=== PATIENT | female | born 1995 | race Caucasian/White ===

== ENCOUNTER → 2020-02-15 | Outpatient (CLI) | payer BC | LOC: RAD 11:48 | PROVIDERS: ATTEND Family Medicine | DX: S03.02XA Dislocation of jaw, left side, initial encounter (principal); X58.XXXA Exposure to other specified factors, initial encounter ==

== ENCOUNTER 2023-05-28 16:39 | Outpatient (CLI) | payer BC ==
[2023-05-28 17:35] VITALS: BP 110/72
--- NOTE | 2023-05-29 08:18 | Physician Query-Final Dx ---
CLIFF05/29/23 0818: Clinic Account Progress/Dx Physician Query: Please give diagnosis Please include # weeks gestation Date of Service May 28, 2023 at 16:39 ANGELO DARBY DO 05/29/23 1028: Clinic Account Progress/Dx DIAGNOSIS: Diagnosis 31 wk GA decreased movement; reactive nst CLIFF,OctMay 29, 2023 08:18 ANGLEO DARBY DO May 29, 2023 10:28
== END 2023-05-28 17:36 | disposition home or self-care (01) ==
LOC: LDRP 16:39 → WSo 16:39
PROVIDERS: ATTEND Family Medicine
DX: O36.8130 Decreased fetal movements, third trimester, not applicable or unspecified (principal); Z3A.31 31 weeks gestation of pregnancy
CPT/HCPCS: 59025

== ENCOUNTER 2023-07-22 19:00 | Inpatient (IN) | payer BC, OTHER ==
[~2023-07-22] VITALS: Ht 165 cm; Wt 103.7 kg
[2023-07-22] MEDS ORDERED: MINERAL OIL 30 ML UDC TOP PRN (19:30)
[2023-07-22] MEDS ORDERED: TERBUTALINE INJ 1 MG/ML (BRETHINE) AMP SC PRN (19:30)
[2023-07-22] MEDS ORDERED: LACTATED RINGERS 1,000 ML 1,000 ML IV SCH (19:30)
[2023-07-22] MEDS ORDERED: LACTATED RINGERS 1,000 ML 500 ML IV PRN (19:30)
[2023-07-22 19:52] LABS: BASOPHILS % (AUTO) 0 % (0-10); EOSINOPHILS % (AUTO) 1 % (0-10); HEMATOCRIT 36 % (35-52); HEMOGLOBIN 12.2 g/dL (11.5-16.0); LYMPHOCYTES % (AUTO) 24 % (12-44); MEAN CORPUSCULAR HEMOGLOBIN 32 pg (25-34); MEAN CORPUSCULAR HGB CONC 34 g/dL (32-36); MEAN CORPUSCULAR VOLUME 96 fL (80-99); MEAN PLATELET VOLUME 11.4 fL (9.0-12.2); MONOCYTES # (AUTO) 0.9 10^3/uL (0.0-1.0); MONOCYTES % (AUTO) 11 % (0-12); NEUTROPHILS # (AUTO) 5.4 10^3/uL (1.8-7.8); NEUTROPHILS % (AUTO) 64 % (42-75); PLATELET COUNT 193 10^3/uL (130-400); WHITE BLOOD COUNT 8.4 10^3/uL (4.3-11.0)
[2023-07-22] MEDS: D5 LR 1,000 ML IV SOLN 1,000 ML IV SCH (19:55)
[2023-07-22 20:09] VITALS: BP 126/73
[2023-07-22] MEDS ORDERED: CALCIUM CARBONATE 500 MG CHEW TABLET PO PRN (21:15)
--- NOTE | 2023-07-22 21:18 | History & Physical-OB ---
OB - Chief Complaint & HPI Date/Time Date of Admission: Date of Admission: Jul 22, 2023 at 19:00 Date seen by a Provider: Jul 22, 2023 Time Seen by a Provider: 19:25 Chief Complaint/History OB-Reason for Admission/Chief: Induction of Labor Hx : 2 Hx Para: 0 Expected Date of Delivery: Jul 26, 2023 Gestational Age in Weeks: 39 Gestational Age in Days: 3 History of Labs A+, antibody neg, RNI. HIV/hepB/hepC/RPR NR. GC/chlamydia neg. 1 hour glucola neg. GBS neg. Other at 39w3d, has had increased blood pressure at last visit of 130/88, as well as requesting induction of labor. Allergies and Home Medications Allergies Coded Allergies: Penicillins (Verified Allergy, Intermediate, Hives, 07/22/23) Patient Home Medication List Home Medication List Reviewed: Yes Diphenhydramine HCl (Benadryl) 25 Mg Capsule, 25 MG PO HS PRN for INSOMNIA, (Reported) Entered as Reported by: SESAR NAIDU on 07/22/232119 Last Action: New Order Escitalopram Oxalate (Escitalopram Oxalate) 20 Mg Tablet, 20 MG PO DAILY, (Reported) Entered as Reported by: SESAR NAIDU on 07/22/232119 Last Action: New Order Pnv95/Ferrous Fumarate/FA ( Vitamin Tablet) 28 Mg Iron-800 Mcg Tablet, 1 EACH PO DAILY, (Reported) Entered as Reported by: SESAR NAIDU on 07/22/232119 Last Action: New Order OB - History Hx of Present Care: Yes Ultrasounds: Normal mid trimester US Obstetrical Complications: None Medical Complications: Psychiatric Information Induced Hypertension: No Maternal Gestational Diabetes: No Hemorrhage: No Obstetrical History Hx : 2 Hx Para: 0 Hx # Term Pregnancies: 0 Hx # Pregnancies: 0 Number of Living Children: 0 Hx Termination: No Hx Total # of Abortions (Spona: 1 Hx Multiple Gestation: No Hx Ectopic : No Hx Stillbirth: No Hx Complication: No Hx Induced Hypertens: No Hx Maternal Gestational Diabet: No Hx Hemorrhage: No Risk Variables Obstetrical Risk Variables: Not POA Anemia, Not POA Asthma, Not POA Autoimmune Disease, Not POA Bariatric Surgery, Not POA Bleeding Disorder, Not POA BMI >= 40, Not POA Cardiac Disease, Not POA Economic Housing Instabil, Not POA Gastrointestinal Disease, Not POA Gestational Diabetes, Not POA HIV, Not POA Hypertension, Not POA Enterprise Systems Engineer Anticoagulant U; POA Mental Health Disorder; Not POA Multiple , Not POA Neuromuscular Disease, Not POA Obstetrical VTE, Not POA Other Preeclampsia, Not POA Placenta Previa, Not POA Placental Abruption, Not POA Placenta Accreta Spectrum, Not POA Preexisting Diabetes, Not POA , Not POA Previous , Not POA Pulmonary Hypertension, Not POA Renal Disease, Not POA Severe Preeclampsia, Not POA Substance Abuse, Not POA Thyrotoxicosis Patient Past Medical History PMHx: Depression Surghx: Appendectomy Social History/Family History Alcohol Use: Denies Use Recreational Drug Use: No Smoking Cessation: Never smoker Immunizations Influenza Vaccine Up-to-Date: No; Not Current COVID19 Vaccine Developer Advocate: Moderna Tetanus Booster (TDap): Less than 5yrs (05/18/2023) Rubella: not immune RPR/VDRL: Negative GBS Status: Negative HBsAG: Negative OB - Admission Exam Physical Exam Vitals: Vital Signs 07/22/23 20:09 Temp 36.3 Pulse 87 Resp 18 Pulse Ox 98 O2 Delivery Room Air HEENT: NCAT Abdomen: Gravid Cervical Dilatation: 1cm Effacement: 0% Station: -3 Membranes: Intact Heart Rate: 130's Decelerations: No Decelerations Short Term Variability: Present Half-Way Variability: Average (6-25) Contractions on Admission: None Reyes Scoring Tool (Modified) Dilation (cm): 1-2cm (1) Effacement (%): 0-30% (0) Descent/Station: -3 (0) Cervix Consistency: Soft (2) Cervix Position: Posterior (0) Subtract 1 point for: Nulliparity (-1) Reyes Score: 2 Labs Laboratory Tests Test 07/22/23 19:35 Range/Units White Blood Count 8.4 4.3-11.0 10^3/uL Red Blood Count 3.77 L 3.80-5.11 10^6/uL Hemoglobin 12.2 11.5-16.0 g/dL Hematocrit 36 35-52 % Mean Corpuscular Volume 96 80-99 fL Mean Corpuscular Hemoglobin 32 25-34 pg Mean Corpuscular Hemoglobin Concent 34 32-36 g/dL Red Cell Distribution Width 13.5 10.0-14.5 % Platelet Count 193 130-400 10^3/uL Mean Platelet Volume 11.4 9.0-12.2 fL Immature Granulocyte % (Auto) 1 % Neutrophils (%) (Auto) 64 42-75 % Lymphocytes (%) (Auto) 24 12-44 % Monocytes (%) (Auto) 11 0-12 % Eosinophils (%) (Auto) 1 0-10 % Basophils (%) (Auto) 0 0-10 % Neutrophils # (Auto) 5.4 1.8-7.8 10^3/uL Lymphocytes # (Auto) 2.0 1.0-4.0 10^3/uL Monocytes # (Auto) 0.9 0.0-1.0 10^3/uL Eosinophils # (Auto) 0.0 0.0-0.3 10^3/uL Basophils # (Auto) 0.0 0.0-0.1 10^3/uL Immature Granulocyte # (Auto) 0.0 0.0-0.1 10^3/uL Syphilis Total Antibody Negative Negative OB - Assessment/Plan/Diagnosis Assessment Admission Dx Term at 39 weeks 4 days Rubella non-immune GBS negative Elevated blood pressure in third trimester Admission Status: Inpatient Order (span 2 midnights) Reason for Inpatient Admission: Labor, delivery and course Plan Problems: (1) Encounter for induction of labor Assessment & Plan: Risks and benefits of induction of labor discussed, including risk of with unfavorable cervix, risk of uterine hyper stimulation with medication use and possible prolonged labor course. She requested to proceed with induction, discussed cervical ripening with mechanical versus pharmacologic methods and she preferred to proceed with cytotec. (2) Elevated blood pressure complicating in third trimester, antepartum Assessment & Plan: Elevated blood pressure without hypertension, monitor closely. (3) Rubella non-immune status, antepartum Assessment & Plan: MMR SESAR NAIDU MD Jul 22, 2023 21:18
[2023-07-22] MEDS ORDERED: PNV91TAB6 PO (21:20)
[2023-07-22] MEDS ORDERED: DIPH25CA79 PO (21:20)
[2023-07-22] MEDS ORDERED: ESCI20TA39 PO (21:20)
[2023-07-22] MEDS ORDERED: CALCIUM CARBONATE 500 MG CHEW TABLET ONE (21:53)
[2023-07-22] MEDS ORDERED: fentaNYL INJECTION 100 MCG/2 ML VIAL IVP PRN (23:30)
[2023-07-23] VITALS (40 sets, daily range): BP systolic 92–135; BP diastolic 53–89
[2023-07-23] MEDS ORDERED: ACETAMINOPHEN 500 MG TABLET PO ONE (02:30)
[2023-07-23] MEDS ORDERED: ACETAMINOPHEN 500 MG TABLET ONE (02:31)
[2023-07-23] MEDS: D5 LR 1,000 ML IV SOLN 1,000 ML IV SCH ×3 (02:56→17:34)
[2023-07-23] MEDS ORDERED: CATHETER FLUSH 10 ML SYR IV SCH (06:00)
--- NOTE | 2023-07-23 10:02 | Labor Progress Note ---
Labor Progress Note Labor Progress Note Date Seen by Provider: Jul 23, 2023 Time Seen by Provider: 08:30 Subjective: Pt denies complaints. Objective: Cervical exam: /-3 Consistency: soft Position: anterior Presentation: vertex heart tones: 130 beats per minute, moderate variability, reactive Tocometer: 5 ctx/10 minutes Assessment/Plan: Debbie Magdaleno is a (27 /Para 2 / 0,Gestational Age (wks)39 here for induction of labor. At initial check around 0750, her cervix was 1.5/40/-3, she had received one dose of cytotec last night and no further due to persistent fr equent contractions. Discussed with her options of catheter ripening, continued expectant management, starting oxytocin or discontinuing induction at this time and considering rescheduling another date or waiting for spontaneous labor. Strongly recommended considering waiting given minimal change so far, after discussion, she wanted to proceed with mechanical ripening and if that was not effective would consider whether she wanted to stop current induction attempt. However, when I checked her cervix at [address] rip[address] catheter, she was /-3. Proceeded with double bulb catheter placement at this time. CEFM/TOCO Anesthesia: None, okay for epidural if/when desired Anticipate vaginal delivery. Vitals - Labs Vital Signs - I&O Vital Signs Date Time Temp Pulse Resp B/P (MAP) Pulse Ox O2 Delivery O2 Flow Rate FiO2 07/23/23 08:36 65 20 128/88 (101) Room Air 07/23/23 08:00 69 20 135/80 (98) Room Air 07/23/23 05:09 78 16 116/75 (89) Room Air 07/23/23 00:21 75 16 116/72 (87) Room Air 07/22/23 20:09 36.3 87 18 98 Room Air I & O 07/23/23 06:59 Intake Total 2000 ml Balance 2000 ml Labs Laboratory Tests 07/22/23 19:35: White Blood Count 8.4, Red Blood Count 3.77L, Hemoglobin 12.2, Hematocrit 36, Mean Corpuscular Volume 96, Mean Corpuscular Hemoglobin 32, Mean Corpuscular Hemoglobin Concent 34, Red Cell Distribution Width 13.5, Platelet Count 193, Mean Platelet Volume 11.4, Immature Granulocyte % (Auto) 1, Neutrophils (%) (Auto) 64, Lymphocytes (%) (Auto) 24, Monocytes (%) (Auto) 11, Eosinophils (%) (Auto) 1, Basophils (%) (Auto) 0, Neutrophils # (Auto) 5.4, Lymphocytes # (Auto) 2.0, Monocytes # (Auto) 0.9, Eosinophils # (Auto) 0.0, Basophils # (Auto) 0.0, Immature Granulocyte # (Auto) 0.0, Syphilis Total Antibody Negative SESAR NAIDU MD Jul 23, 2023 10:02
--- NOTE | 2023-07-23 16:26 | Labor Progress Note ---
Labor Progress Note Labor Progress Note Date Seen by Provider: Jul 23, 2023 Time Seen by Provider: 16:00 Subjective: Pt denies complaints. Contractions have stopped. Cook catheter has not been extruded yet. Discussed options including simply leaving catheter for longer, removing catheter and starting pitocin, removing catheter and rupturing and starting pitocin and removing catheter and ending current attempt at induction if cervix not significantly changing. She would like to have have catheter removed and if significant cervical change to have AROM and pitocin, if not, then to trial pitocin. Objective: Cervical exam: Vaginal bulb emptied, uterine bulb removed 40 cc and catheter removed before further deflation as it slid out with minimal traction. Consistency: 5/40/-3 Position: anterior Presentation: vertex heart tones: 125 beats per minute, moderate variability, reactive Tocometer: 0 ctx/10 minutes Assessment/Plan: Debbie Magdaleno is a 27 /Para 2 / 0,Gestational Age 39w5d here for induction of labor. She is still requesting to continue induction at this time, will hold off on AROM due to high head and to preserve ability to abandon current induction attempt. Start pitocin. CEFM/TOCO Start pitocin Anesthesia: None Anticipate vaginal delivery. Vitals - Labs Vital Signs - I&O Vital Signs Date Time Temp Pulse Resp B/P (MAP) Pulse Ox O2 Delivery O2 Flow Rate FiO2 07/23/23 12:00 72 18 120/72 (88) 07/23/23 08:36 65 20 128/88 (101) Room Air 07/23/23 08:00 69 20 135/80 (98) Room Air 07/23/23 05:09 78 16 116/75 (89) Room Air 07/23/23 00:21 75 16 116/72 (87) Room Air 07/22/23 20:09 36.3 87 18 98 Room Air I & O 07/23/23 07:00 Intake Total 2000 ml Balance 2000 ml Labs Laboratory Tests 07/22/23 19:35: White Blood Count 8.4, Red Blood Count 3.77L, Hemoglobin 12.2, Hematocrit 36, Mean Corpuscular Volume 96, Mean Corpuscular Hemoglobin 32, Mean Corpuscular Hemoglobin Concent 34, Red Cell Distribution Width 13.5, Platelet Count 193, Mean Platelet Volume 11.4, Immature Granulocyte % (Auto) 1, Neutrophils (%) (Auto) 64, Lymphocytes (%) (Auto) 24, Monocytes (%) (Auto) 11, Eosinophils (%) (Auto) 1, Basophils (%) (Auto) 0, Neutrophils # (Auto) 5.4, Lymphocytes # (Auto) 2.0, Monocytes # (Auto) 0.9, Eosinophils # (Auto) 0.0, Basophils # (Auto) 0.0, Immature Granulocyte # (Auto) 0.0, Syphilis Total Antibody Negative SESAR NAIDU MD Jul 23, 2023 16:26
[2023-07-23] MEDS: OXYTOCIN DRIP PRE-MIX 500 ML IV SCH (17:37)
[2023-07-23] MEDS ORDERED: fentaNYL 2 mcg/ml BUPIVA 0.125 100 ML ONE (21:35)
[2023-07-23] MEDS ORDERED: fentaNYL INJECTION 100 MCG/2 ML VIAL ONE (21:59)
[2023-07-23] MEDS ORDERED: BUPIVACAINE 0.25% 10 ML VIAL ONE (21:59)
[2023-07-23] MEDS: fentaNYL 2 mcg/ml BUPIVA 0.125 100 ML EPI SCH (22:44)
[2023-07-23] MEDS ORDERED: LACTATED RINGERS 1,000 ML 1,000 ML IV SCH (22:45)
[2023-07-23] MEDS ORDERED: diphenhydrAMINE INJ 50 MG/ML VIAL IV PRN (22:45)
[2023-07-23] MEDS ORDERED: ONDANSETRON INJECTION 4 MG/2 ML (SDV) IV PRN (22:45)
[2023-07-23] MEDS ORDERED: NALOXONE 0.4 MG/ML 1 ML VIAL IV PRN (22:45)
[2023-07-24] VITALS (72 sets, daily range): BP systolic 84–134; BP diastolic 50–84
[2023-07-24] MEDS: D5 LR 1,000 ML IV SOLN 1,000 ML IV SCH ×2 (01:29→10:54)
[2023-07-24] MEDS: fentaNYL 2 mcg/ml BUPIVA 0.125 100 ML EPI SCH ×2 (05:37→13:09)
--- NOTE | 2023-07-24 08:26 | Labor Progress Note ---
Labor Progress Note Labor Progress Note Date Seen by Provider: Jul 24, 2023 Time Seen by Provider: 08:23 Subjective: Pt denies complaints. Objective: Cervical exam: /0 Consistency: soft Position: anterior Presentation: vertex heart tones: 140 beats per minute, moderate variability, reactive Tocometer: 3 ctx/10 minutes Assessment/Plan: Debbie Magdaleno is a 27 /Para 2 / 0,Gestational Age 39w6d here for induction of labor. Yesterday evening around 8 pm, she was still 5/0/-3 and we discussed again the possibility of terminating induction attepmt and trying again next week. She wanted to try pitocin and position changes to see if she would make progress through the night, and then she had spontaneous rupture of membranes around 1030 pm. This morning at 6 am she was 7/90/-1 per nursing exam. Given slow progress and change, discussed IUPC placement which she was agreeable to and was done with this exam. Updated Dr. Beyer Pipelines Supervisor orthodontic laboratory technician as well as Dr. Larios who will be taking over care for her until noon today, followed by Dr. Lees at noon. CEFM/IUPC Continue pitocin Anesthesia: epidural Anticipate vaginal delivery, but discussed with patient the criteria for failure to progress and will monitor IUPC and well being closely. Vitals - Labs Vital Signs - I&O Vital Signs Date Time Temp Pulse Resp B/P (MAP) Pulse Ox O2 Delivery O2 Flow Rate FiO2 07/24/23 06:56 87 16 113/60 (77) 97 Room Air 07/24/23 06:41 81 16 117/58 (77) 97 Room Air 07/24/23 06:26 84 16 110/59 (76) 97 Room Air 07/24/23 06:12 81 16 109/62 (78) 97 Room Air 07/24/23 05:57 84 16 100/62 (75) 96 Room Air 07/24/23 05:42 36.4 85 16 109/68 (82) 97 Room Air 07/24/23 05:26 84 16 108/63 (78) 97 Room Air 07/24/23 05:12 85 16 111/65 (80) 97 Room Air 07/24/23 04:58 85 16 108/63 (78) 96 Room Air 07/24/23 04:41 86 16 111/57 (75) 96 Room Air 07/24/23 04:26 83 16 107/70 (82) 97 Room Air 07/24/23 04:11 86 16 106/65 (79) 98 Room Air 07/24/23 03:56 94 16 103/58 (73) 97 Room Air 07/24/23 03:41 82 16 99/56 (70) 97 Room Air 07/24/23 03:26 75 16 98/56 (70) 97 Room Air 07/24/23 03:11 78 16 96/56 (69) 98 Room Air 07/24/23 02:56 75 16 96/59 (71) 98 Room Air 07/24/23 02:41 36.4 87 16 91/57 (68) 95 Room Air 07/24/23 02:25 71 16 93/53 (66) 96 Room Air 07/24/23 02:11 71 16 92/50 (64) 97 Room Air 07/24/23 02:03 68 16 89/54 (66) 98 Room Air 07/24/23 01:56 77 16 89/53 (65) 97 Room Air 07/24/23 01:41 80 16 103/55 (71) 97 Room Air 07/24/23 01:26 76 16 99/55 (70) 97 Room Air 07/24/23 01:20 85 16 101/59 (73) 98 Room Air 07/24/23 01:10 79 16 84/54 (64) 96 Room Air 07/24/23 00:55 75 16 92/55 (67) 97 Room Air 07/24/23 00:40 81 16 95/57 (70) 99 Room Air 07/24/23 00:27 81 18 92/52 (65) 98 Room Air 07/24/23 00:12 87 18 113/73 (86) 99 Room Air 07/23/23 23:56 78 18 118/64 (82) 99 Room Air 07/23/23 23:41 80 18 108/70 (83) 99 Room Air 07/23/23 23:26 78 18 109/60 (76) 100 Room Air 07/23/23 23:11 75 18 105/66 (79) 100 Room Air 07/23/23 22:55 36.9 77 18 111/60 (77) 100 Room Air 07/23/23 22:50 71 18 102/56 (71) 99 Room Air 07/23/23 22:47 85 18 107/64 (78) 99 Room Air 07/23/23 22:43 76 18 102/64 (77) 99 Room Air 07/23/23 22:40 88 18 108/62 (77) 100 Room Air 07/23/23 22:37 85 18 106/59 (75) 100 Room Air 07/23/23 22:34 90 18 105/67 (80) 99 Room Air 07/23/23 22:32 84 18 104/67 (79) 100 Room Air 07/23/23 22:31 86 18 92/53 (66) 100 Room Air 07/23/23 22:29 81 18 95/54 (68) 100 Room Air 07/23/23 22:26 93 18 108/72 (84) 100 Room Air 07/23/23 22:23 81 18 110/68 (82) 100 Room Air 07/23/23 22:17 81 18 118/68 (85) 100 Room Air 07/23/23 22:14 74 18 119/67 (84) 100 Room Air 07/23/23 22:11 81 18 120/72 (88) 100 Room Air 07/23/23 21:58 81 18 132/89 (103) 100 Room Air 07/23/23 21:41 79 18 124/74 (91) 100 Room Air 07/23/23 21:28 73 18 126/82 (97) 100 Room Air 07/23/23 21:11 65 18 114/69 (84) 99 Room Air 07/23/23 20:56 69 18 129/64 (85) 100 Room Air 07/23/23 20:42 72 18 113/79 (90) 100 Room Air 07/23/23 20:26 86 18 123/72 (89) 99 Room Air 07/23/23 20:11 36.8 79 18 117/71 (86) 100 Room Air 07/23/23 19:56 80 18 113/67 (82) 100 Room Air 07/23/23 19:40 83 121/80 (94) Room Air 07/23/23 19:26 82 115/77 (90) Room Air 07/23/23 19:13 77 114/70 (85) Room Air 07/23/23 19:00 81 110/65 (80) Room Air 07/23/23 18:45 80 110/72 (85) Room Air 07/23/23 18:30 78 110/67 (81) Room Air 07/23/23 18:15 77 119/61 (80) Room Air 07/23/23 12:00 72 18 120/72 (88) 07/23/23 08:36 65 20 128/88 (101) Room Air I & O 07/24/23 07:00 Intake Total 2285 ml Output Total 650 ml Balance 1635 ml SESAR NAIDU MD Jul 24, 2023 08:26
[2023-07-24] MEDS ORDERED: LIDOCAINE 2% w/EPI 1:200,000 20 ML VIAL ONE (14:21)
[2023-07-24] MEDS: OXYTOCIN DRIP PRE-MIX 500 ML IV SCH (14:51)
--- NOTE | 2023-07-24 15:44 | OB Labor & Delivery Record ---
LYNSEY HERNANDEZ MD,RESIDENT 07/24/23 1544: Vag Delivery Note Vag Delivery Note Date of Delivery: 07/24/23 Preoperative Diagnosis: Debbie yanez a (27 /Para 2 / 0,Gestational Age (wks)39with [ ] Postoperative Diagnosis: Same Attending Surgeon/Physician: Janee Brooks MD Resident Physician: Lynsey Hernandez MD Anesthesia: Epidural Delivery Type: Spontaneous vaginal Findings: Viable female , apgars 7,9, weight 8lbs Lacerations: 2nd degree perineal, periurethral and lateral labia abrasion Intact placenta with 3 vessel cord. No nuchal cord, body cord or shoulder dystocia Estimated Blood Loss: 300 ml Complications: None Condition: Stable Description of Procedure: The patient is a 27 year old female who presented for IOL. She was admitted and informed consent was obtained. Her labor course was uncomplicated. She progressed to complete dilatation and began to push. She was then set up for delivery. The 's head was delivered atraumatically in the AMARI position. The shoulders and remainder of the 's body were then delivered without difficulty. Upon delivery, the infant was vigorous and placed on maternal chest and the mouth and nares were bulb suctioned. After a delay co rd was doubly clamped and cut and the remained on maternal chest. An intact placenta with 3-vessel cord delivered via Jaylyn and there was found to be minimal bleeding.~ Vigorous fundal massage was performed and the fundus was found to be firm. IV oxytocin was given. Pt persisted to bleed, repeat fundal assessment showed a mildly boggy uterus, Methergine was given. Uterus was firm on repeat fundal assessment. Examination of the vagina and perineum revealed 2nd and 1st degree lacerations repaired in the usual fashion with 3-0 vicryl rapide suture. Following the repair, sponge, instrument and needle counts were correct. Mom and baby were both in stable condition in the labor suite. Vitals - Labs Vital Signs - I&O Vital Signs Date Time Temp Pulse Resp B/P (MAP) Pulse Ox O2 Delivery O2 Flow Rate FiO2 07/24/23 10:12 86 18 107/69 (82) 97 Room Air 07/24/23 09:57 86 18 104/67 (79) 97 Room Air 07/24/23 09:42 89 18 100/52 (68) 97 Room Air 07/24/23 09:27 85 18 95/52 (66) 97 Room Air 07/24/23 09:12 83 18 98/53 (68) 96 Room Air 07/24/23 08:57 82 18 92/53 (66) 96 Room Air 07/24/23 08:42 90 18 90/56 (67) 96 Room Air 07/24/23 08:27 37.3 121 18 133/67 (89) 100 Room Air 07/24/23 08:12 84 16 110/71 (84) 100 Room Air 07/24/23 07:57 80 16 111/72 (85) 100 Room Air 07/24/23 07:42 86 16 111/74 (86) 97 Room Air 07/24/23 07:28 89 16 111/66 (81) 97 Room Air 07/24/23 07:12 91 16 113/64 (80) 97 Room Air 07/24/23 06:56 87 16 113/60 (77) 97 Room Air 07/24/23 06:41 81 16 117/58 (77) 97 Room Air 07/24/23 06:26 84 16 110/59 (76) 97 Room Air 07/24/23 06:12 81 16 109/62 (78) 97 Room Air 07/24/23 05:57 84 16 100/62 (75) 96 Room Air 07/24/23 05:42 36.4 85 16 109/68 (82) 97 Room Air 07/24/23 05:26 84 16 108/63 (78) 97 Room Air 07/24/23 05:12 85 16 111/65 (80) 97 Room Air 07/24/23 04:58 85 16 108/63 (78) 96 Room Air 07/24/23 04:41 86 16 111/57 (75) 96 Room Air 07/24/23 04:26 83 16 107/70 (82) 97 Room Air 07/24/23 04:11 86 16 106/65 (79) 98 Room Air 07/24/23 03:56 94 16 103/58 (73) 97 Room Air 07/24/23 03:41 82 16 99/56 (70) 97 Room Air 07/24/23 03:26 75 16 98/56 (70) 97 Room Air 07/24/23 03:11 78 16 96/56 (69) 98 Room Air 07/24/23 02:56 75 16 96/59 (71) 98 Room Air 07/24/23 02:41 36.4 87 16 91/57 (68) 95 Room Air 07/24/23 02:25 71 16 93/53 (66) 96 Room Air 07/24/23 02:11 71 16 92/50 (64) 97 Room Air 07/24/23 02:03 68 16 89/54 (66) 98 Room Air 07/24/23 01:56 77 16 89/53 (65) 97 Room Air 07/24/23 01:41 80 16 103/55 (71) 97 Room Air 07/24/23 01:26 76 16 99/55 (70) 97 Room Air 07/24/23 01:20 85 16 101/59 (73) 98 Room Air 07/24/23 01:10 79 16 84/54 (64) 96 Room Air 07/24/23 00:55 75 16 92/55 (67) 97 Room Air 07/24/23 00:40 81 16 95/57 (70) 99 Room Air 07/24/23 00:27 81 18 92/52 (65) 98 Room Air 07/24/23 00:12 87 18 113/73 (86) 99 Room Air 07/23/23 23:56 78 18 118/64 (82) 99 Room Air 07/23/23 23:41 80 18 108/70 (83) 99 Room Air 07/23/23 23:26 78 18 109/60 (76) 100 Room Air 07/23/23 23:11 75 18 105/66 (79) 100 Room Air 07/23/23 22:55 36.9 77 18 111/60 (77) 100 Room Air 07/23/23 22:50 71 18 102/56 (71) 99 Room Air 07/23/23 22:47 85 18 107/64 (78) 99 Room Air 07/23/23 22:43 76 18 102/64 (77) 99 Room Air 07/23/23 22:40 88 18 108/62 (77) 100 Room Air 07/23/23 22:37 85 18 106/59 (75) 100 Room Air 07/23/23 22:34 90 18 105/67 (80) 99 Room Air 07/23/23 22:32 84 18 104/67 (79) 100 Room Air 07/23/23 22:31 86 18 92/53 (66) 100 Room Air 07/23/23 22:29 81 18 95/54 (68) 100 Room Air 07/23/23 22:26 93 18 108/72 (84) 100 Room Air 07/23/23 22:23 81 18 110/68 (82) 100 Room Air 07/23/23 22:17 81 18 118/68 (85) 100 Room Air 07/23/23 22:14 74 18 119/67 (84) 100 Room Air 07/23/23 22:11 81 18 120/72 (88) 100 Room Air 07/23/23 21:58 81 18 132/89 (103) 100 Room Air 07/23/23 21:41 79 18 124/74 (91) 100 Room Air 07/23/23 21:28 73 18 126/82 (97) 100 Room Air 07/23/23 21:11 65 18 114/69 (84) 99 Room Air 07/23/23 20:56 69 18 129/64 (85) 100 Room Air 07/23/23 20:42 72 18 113/79 (90) 100 Room Air 07/23/23 20:26 86 18 123/72 (89) 99 Room Air 07/23/23 20:11 36.8 79 18 117/71 (86) 100 Room Air 07/23/23 19:56 80 18 113/67 (82) 100 Room Air 07/23/23 19:40 83 121/80 (94) Room Air 07/23/23 19:26 82 115/77 (90) Room Air 07/23/23 19:13 77 114/70 (85) Room Air 07/23/23 19:00 81 110/65 (80) Room Air 07/23/23 18:45 80 110/72 (85) Room Air 07/23/23 18:30 78 110/67 (81) Room Air 07/23/23 18:15 77 119/61 (80) Room Air I & O 07/24/23 07:00 Intake Total 2285 ml Output Total 650 ml Balance 1635 ml JANEE BROOKS MD 07/25/23 1236: Vag Delivery Note Vag Delivery Note I was present for the entire labor procedure and laceration repair performed by the resident and agree with the documentation. LYNSEY HERNANDEZ MD,RESIDENT Jul 24, 2023 15:44 JANEE BROOKS MD Jul 25, 2023 12:36
[2023-07-24] MEDS ORDERED: MEASLES, MUMPS, RUBELLA VACCINE (MMR) SQ ONE (16:00)
[2023-07-24] MEDS ORDERED: WITCH HAZEL(TUCKS) 40 EA JAR TOP PRN (16:00)
[2023-07-24] MEDS ORDERED: OXYTOCIN DRIP PRE-MIX 500 ML IV SCH (16:00)
[2023-07-24] MEDS ORDERED: Tetanus/Diphtheria/Pertussis (Acell) ADULT Vaccine 0.5 ML IM ONE (16:00)
[2023-07-24] MEDS ORDERED: BENZOCAINE/MENTHOL (DERMOPLAST) 56 ML CAN TP PRN (16:00)
[2023-07-24] MEDS ORDERED: METHYLERGONOVINE INJ 0.2 MG/ML AMP IM ONE (16:41)
[2023-07-24] MEDS: IBUPROFEN 800 MG TABLET PO SCH (17:28)
[2023-07-24] MEDS: ACETAMINOPHEN 500 MG TABLET PO SCH ×2 (17:28→23:49)
[2023-07-24] MEDS ORDERED: CATHETER FLUSH 10 ML SYR IV SCH (22:00)
[2023-07-24] MEDS: DOCUSATE SODIUM 100 MG CAPSULE PO SCH (22:22)
[2023-07-25 01:36] VITALS: BP 121/65
[2023-07-25] MEDS: IBUPROFEN 800 MG TABLET PO SCH ×2 (01:36→08:49)
[2023-07-25 05:43] LABS: BASOPHILS # (AUTO) 0.1 10^3/uL (0.0-0.1); BASOPHILS % (AUTO) 0 % (0-10); EOSINOPHILS # (AUTO) 0.1 10^3/uL (0.0-0.3); EOSINOPHILS % (AUTO) 1 % (0-10); HEMATOCRIT 37 % (35-52); HEMOGLOBIN 12.2 g/dL (11.5-16.0); LYMPHOCYTES % (AUTO) 22 % (12-44); MEAN CORPUSCULAR HEMOGLOBIN 32 pg (25-34); MEAN CORPUSCULAR HGB CONC 33 g/dL (32-36); MEAN CORPUSCULAR VOLUME 98 fL (80-99); MEAN PLATELET VOLUME 11.5 fL (9.0-12.2); MONOCYTES # (AUTO) 1.2 10^3/uL (0.0-1.0); MONOCYTES % (AUTO) 9 % (0-12); NEUTROPHILS # (AUTO) 9.6 10^3/uL (1.8-7.8); NEUTROPHILS % (AUTO) 68 % (42-75); PLATELET COUNT 176 10^3/uL (130-400)
[2023-07-25 06:26] VITALS: BP 117/78
[2023-07-25] MEDS: ACETAMINOPHEN 500 MG TABLET PO SCH ×2 (06:26→12:54)
--- NOTE | 2023-07-25 08:43 | Postpartum Progress Note ---
AVELINA COHN MD,RESIDENT 07/25/23 0843: Note Note Day # 1 Subjective: Patient is without complaints. Ambulating, voiding. Tolerating a regular diet without nausea or vomiting. Normal lochia. Pain is well controlled with oral pa in medications. Breast feeding. Physical Exam: General - Alert and oriented, no apparent distress Abdomen - Soft, appropriately tender to palpation, non-distended, fundus firm at umbilicus Extremities - no edema, negative Amgdalena's bilaterally Assessment: post- day # 1, status post spontaneous vaginal delivery. Recovering well, hemodynamically stable Plan: Routine care. Encourage breast feeding. Encourage ambulation. Ferrous sulfate supplementation. Plan for discharge PPD2 Vitals - Labs Vital Signs - I&O Vital Signs Date Time Temp Pulse Resp B/P (MAP) Pulse Ox O2 Delivery O2 Flow Rate FiO2 07/25/23 06:26 35.9 72 18 117/78 (91) 98 Room Air 07/25/23 01:36 35.8 72 18 121/65 (83) 96 Room Air 07/24/23 22:22 35.8 80 18 122/62 (82) 98 Room Air 07/24/23 17:10 71 18 116/75 (89) Room Air 07/24/23 16:55 36.7 77 18 120/81 (94) Room Air 07/24/23 16:40 36.8 72 18 127/72 (90) Room Air 07/24/23 16:26 36.9 67 18 126/73 (90) Room Air 07/24/23 16:11 37.0 77 18 126/77 (93) Room Air 07/24/23 15:56 37.0 68 18 134/78 (96) Room Air 07/24/23 15:40 37.2 71 18 120/60 (80) Room Air 07/24/23 15:26 78 18 117/67 (84) 100 Room Air 07/24/23 15:10 86 18 101/59 (73) 100 Room Air 07/24/23 14:57 37.5 80 18 101/58 (72) 100 Room Air 07/24/23 14:42 88 18 102/53 (69) 100 Room Air 07/24/23 14:27 88 18 117/64 (81) 100 Room Air 07/24/23 14:12 81 18 115/75 (88) 100 Room Air 07/24/23 13:57 81 18 113/68 (83) 100 Room Air 07/24/23 13:42 83 18 122/71 (88) 100 Room Air 07/24/23 13:27 81 18 125/84 (98) 100 Room Air 07/24/23 13:12 81 18 122/81 (95) 99 Room Air 07/24/23 12:57 88 18 122/82 (95) 100 Room Air 07/24/23 12:42 37.4 83 18 117/78 (91) 100 Room Air 07/24/23 12:27 77 18 120/74 (89) 100 Room Air 07/24/23 12:12 95 18 111/64 (80) 99 Room Air 07/24/23 11:57 75 18 116/70 (85) 99 Room Air 07/24/23 11:42 75 18 112/69 (83) 98 Room Air 07/24/23 11:27 82 18 128/77 (94) 98 Room Air 07/24/23 11:12 81 18 128/70 (89) 98 Room Air 07/24/23 10:57 80 18 107/57 (74) 96 Room Air 07/24/23 10:42 96 18 98/57 (71) 97 Room Air 07/24/23 10:27 37.3 81 18 101/66 (78) 96 Room Air 07/24/23 10:12 86 18 107/69 (82) 97 Room Air 07/24/23 09:57 86 18 104/67 (79) 97 Room Air 07/24/23 09:42 89 18 100/52 (68) 97 Room Air 07/24/23 09:27 85 18 95/52 (66) 97 Room Air 07/24/23 09:12 83 18 98/53 (68) 96 Room Air 07/24/23 08:57 82 18 92/53 (66) 96 Room Air I & O 07/25/23 07:00 Intake Total 2500 ml Balance 2500 ml Labs Laboratory Tests 07/25/23 05:30: White Blood Count 14.0H, Red Blood Count 3.76L, Hemoglobin 12.2, Hematocrit 37, Mean Corpuscular Volume 98, Mean Corpuscular Hemoglobin 32, Mean Corpuscular Hemoglobin Concent 33, Red Cell Distribution Width 13.9, Platelet Count 176, Mean Platelet Volume 11.5, Immature Granulocyte % (Auto) 1, Neutrophils (%) (Auto) 68, Lymphocytes (%) (Auto) 22, Monocytes (%) (Auto) 9, Eosinophils (%) (Auto) 1, Basophils (%) (Auto) 0, Neutrophils # (Auto) 9.6H, Lymphocytes # (Auto) 3.0, Monocytes # (Auto) 1.2H, Eosinophils # (Auto) 0.1, Basophils # (Auto) 0.1, Immature Granulocyte # (Auto) 0.1 JANEE BROOKS MD 07/25/23 1236: Note Note I personally performed the carreno portions of the visit, discussed case with resident and concur with resident documentation of history, physical exam, assessment and treatment plan unless otherwise noted. AVELINA COHN MD,RESIDENT Jul 25, 2023 08:43 JANEE BROOKS MD Jul 25, 2023 12:36
--- NOTE | 2023-07-25 08:47 | Anesthesia-Regional Post-Op ---
Regional Patient Condition Mental Status: Alert, Oriented x3 Circulation: Same as Pre-Op Headache: Absent Sensation: Full Recovery Motor Block: Absent Post Op Complications Complications None Follow Up Care/Instructions Patient Instructions None needed. Anesthesia/Patient Condition Patient is doing well, no complaints, stable vital signs, no apparent adverse anesthesia problems. No complications reported per nursing. CLARY LEVINE CRNA Jul 25, 2023 08:47
[2023-07-25 08:49] VITALS: BP 121/70
[2023-07-25] MEDS: DOCUSATE SODIUM 100 MG CAPSULE PO SCH (08:49)
--- NOTE | 2023-07-25 12:35 | Discharge Summary ---
Diagnosis/Chief Complaint Date of Admission Jul 22, 2023 at 19:00 Date of Discharge 07/25/23 Admission Diagnosis Admission Diagnosis Third Trimester 39 week gestation Discharge Diagnosis Term Discharge Summary-Simple/Stand Procedures Epidural placement IUPC placement Discharge Physical Examination Allergies: Coded Allergies: Penicillins (Verified Allergy, Intermediate, Hives, 07/22/23) Vitals & I&Os Vital Sign - Last 12Hours Date Time Temp Pulse Resp B/P (MAP) Pulse Ox O2 Delivery O2 Flow Rate FiO2 07/25/23 08:49 36.1 67 18 121/70 (87) Room Air 07/25/23 06:26 98 Intake and Output 07/25/23 00:00 Intake Total 1500 ml Balance 1500 ml General Appearance: Alert, Oriented X3, No Acute Distress Respiratory: Clear to Auscultation, Normal Air Movement Cardiovascular: Regular Rate, No Murmurs Abdominal: Normal Bowel Sounds, Soft, No Tenderness, Other (fundus firm and below umbilicus) Extremities: Other (trace edema) Hospital Course See final discharge diagnosis. Discussion & Recommendations 27 yo G1 now P1 delivered term female infant via . Plan to d/c PPD#1 Discharge Condition at discharge stable Instructions to patient/family Please see electronic discharge instructions given to patient. Discharge Medications Reviewed and agree with Discharge Medication list on patient's Discharge Instruction sheet JANEE BROOKS MD Jul 25, 2023 12:35
[2023-07-25] MEDS ORDERED: IBUP-1773 PO (12:38)
[2023-07-25] MEDS ORDERED: DOCU100C37 PO (12:38)
--- NOTE | 2023-07-25 12:39 | Discharge Summary ---
Discharge Inst-Women's Serv Depart Medications New, Converted or Re-Newed RX: Transmitted to Pharmacy New Medications: Docusate Sodium (Docusate Sodium) 100 Mg Capsule 100 MG PO BID, #14 CAP Ibuprofen (Ibuprofen) 600 Mg Tablet 600 MG PO Q6H PRN for PAIN-MILD, #30 TAB Continued Medications: Escitalopram Oxalate (Escitalopram Oxalate) 20 Mg Tablet 20 MG PO DAILY Pnv95/Ferrous Fumarate/FA ( Vitamin Tablet) 28 Mg Iron-800 Mcg Tablet 1 EACH PO DAILY, TAB Discontinued Medications: Diphenhydramine HCl (Benadryl) 25 Mg Capsule 25 MG PO HS PRN for INSOMNIA, CAP Follow Up/Instructions Goal/Follow Up: F/u 6 weeks with [facility] Activity Activity: Activity as Tolerated Driving Instructions: You May Drive NO SMOKING: NO SMOKING Nothing Inside Vagina: No Douching, No [place], No Tampons Diet Discharge Diet: No Restrictions Symptoms to Report to : Bleeding Excessive, Pain Increased, Fever Over 101 Degrees F JANEE BROOKS MD Jul 25, 2023 12:39
[2023-07-25 12:49] VITALS: BP 104/65
--- NOTE | 2023-07-25 15:25 | Discharge Summary ---
AVELINA COHN MD,RESIDENT 07/25/23 1525: Discharge Summary Hospital Course Problems/Diagnosis: (1) Encounter for induction of labor Assessment & Plan: Risks and benefits of induction of labor discussed, including risk of with unfavorable cervix, risk of uterine hyperstimulation with medication use and possible prolonged labor course. She requested to proceed with induction, discussed cervical ripening with mechanical versus pharmacologic methods and she preferred to proceed with cytotec. (2) Elevated blood pressure complicating in third trimester, antepartum Assessment & Plan: Elevated blood pressure without hypertension, monitor closely. (3) Rubella non-immune status, antepartum Status: Acute Assessment & Plan: MMR Hospital Course Date of Admission: Jul 22, 2023 at 19:00 Admission Diagnosis : Family Physician/Provider: Amando Hassan MD Date of Discharge: 07/25/23 Discharge Diagnosis: Spontaneous vaginal delivery Hospital Course: Uncomplicated spontaneous vaginal delivery resulting in live of female . hgb 12.2 Expect routine course Follow-up with Dr. Jo in 6 weeks for visit. Labs and Pending Lab Test: Laboratory Tests 07/25/23 05:30: White Blood Count 14.0H, Red Blood Count 3.76L, Hemoglobin 12.2, Hematocrit 37, Mean Corpuscular Volume 98, Mean Corpuscular Hemoglobin 32, Mean Corpuscular Hemoglobin Concent 33, Red Cell Distribution Width 13.9, Platelet Count 176, Mean Platelet Volume 11.5, Immature Granulocyte % (Auto) 1, Neutrophils (%) (Auto) 68, Lymphocytes (%) (Auto) 22, Monocytes (%) (Auto) 9, Eosinophils (%) (Auto) 1, Basophils (%) (Auto) 0, Neutrophils # (Auto) 9.6H, Lymphocytes # (Auto) 3.0, Monocytes # (Auto) 1.2H, Eosinophils # (Auto) 0.1, Basophils # (Auto) 0.1, Immature Granulocyte # (Auto) 0.1 Home Meds Active Docusate Sodium 100 Mg Capsule 100 Mg PO BID Ibuprofen 600 Mg Tablet 600 Mg PO Q6H PRN Reported Benadryl (Diphenhydramine HCl) 25 Mg Capsule 25 Mg PO HS PRN Vitamin Tablet (Pnv95/Ferrous Fumarate/FA) 28 Mg Iron-800 Mcg Tablet 1 Each PO DAILY Escitalopram Oxalate 20 Mg Tablet 20 Mg PO DAILY Activity: Activity as Tolerated Nothing Inside Vagina: No Douching, No [place], No Tampons Discharge Diet: No Restrictions Symptoms to Report to : Pain Increased, Fever Over 101 Degrees F, Cramps in Feet or Legs, Vaginal Discharge Foul, Shortness of Breath Discharge Physical Examination Allergies: Coded Allergies: Penicillins (Verified Allergy, Intermediate, Hives, 07/22/23) Vitals & I&Os Vital Signs Date Time Temp Pulse Resp B/P (MAP) Pulse Ox O2 Delivery O2 Flow Rate FiO2 07/25/23 12:49 36.2 72 18 104/65 (78) Room Air 07/25/23 06:26 98 General Appearance: No Apparent Distress Respiratory: Chest Non Tender, Normal Breath Sounds Cardiovascular: Regular Rate, Rhythm Gastrointestinal: Normal Bowel Sounds, Non Tender, Soft Skin: Warm/Dry Neurologic/Psychiatric: Alert, Oriented x3, Normal Mood/Affect Discharge Summary Date of Admission Jul 22, 2023 at 19:00 Date of Discharge Discharge Date: Jul 25, 2023 Discharge Diagnosis (1) Encounter for induction of labor Assessment & Plan: Risks and benefits of induction of labor discussed, including risk of with unfavorable cervix, risk of uterine hyperstimulation with medication use and possible prolonged labor course. She requested to proceed with induction, discussed cervical ripening with mechanical versus pharmacologic methods and she preferred to proceed with cytotec. (2) Elevated blood pressure complicating in third trimester, antep artum Assessment & Plan: Elevated blood pressure without hypertension, monitor closely. (3) Rubella non-immune status, antepartum Status: Acute Assessment & Plan: MMR JANEE BROOKS MD 07/27/23 1027: Discharge Summary Discharge Physical Examination Allergies: Coded Allergies: Penicillins (Verified Allergy, Intermediate, Hives, 07/22/23) Supervisory-Addendum Brief Verification & Attestation Participated in pt care: history, physical Personally performed: exam, history Care discussed with: Medical Student Procedures: n/a I personally performed the carreno portions of the visit, discussed case with resident and concur with resident documentation of history, physical exam, assessment and treatment plan unless otherwise noted. AVELINA COHN MD,RESIDENT Jul 25, 2023 15:25 JANEE BROOKS MD Jul 27, 2023 10:27
[2023-07-25] MEDS ORDERED: MEASLES, MUMPS, RUBELLA VACCINE (MMR) ONE (15:52)
== END 2023-07-25 16:42 | disposition home or self-care (01) | DRG 807 ==
LOC: LDRP 19:00
PROVIDERS: ADMIT Family Medicine; ATTEND Family Medicine
PROC: 3E0DXGC Introduction of Other Therapeutic Substance into Mouth and Pharynx, External Approach (ICD-10-PCS; 2023-07-22)
PROC: 0U7C7ZZ Dilation of Cervix, Via Natural or Artificial Opening (ICD-10-PCS; 2023-07-23)
PROC: 10E0XZZ Delivery of Products of Conception, External Approach (ICD-10-PCS; principal; 2023-07-24)
PROC: 0KQM0ZZ Repair Perineum Muscle, Open Approach (ICD-10-PCS; 2023-07-24)
PROC: 10H07YZ Insertion of Other Device into Products of Conception, Via Natural or Artificial Opening (ICD-10-PCS; 2023-07-24)
DX: O99.42 Diseases of the circulatory system complicating childbirth (principal); Z37.0 Single live birth; Z3A.39 39 weeks gestation of pregnancy; R03.0 Elevated blood-pressure reading, without diagnosis of hypertension; O70.1 Second degree perineal laceration during delivery; O71.82 Other specified trauma to perineum and vulva; O90.89 Other complications of the puerperium, not elsewhere classified; Z23 Encounter for immunization
CPT/HCPCS: 36415; 85025; 86780; 86850; 86900; 86901; 90707